=== PATIENT | male | born 1985 | race Caucasian/White ===

== ENCOUNTER 2020-08-19 08:31 | Emergency (ER) | payer OTHER ==
[2020-08-19] MEDS ORDERED: COLACE100 MG PO (11:27)
== END 2020-08-19 12:12 | disposition home or self-care (01) ==
LOC: ER1 08:31
DX: K59.00 Constipation, unspecified (principal); F17.290 Nicotine dependence, other tobacco product, uncomplicated
CPT/HCPCS: 99283